=== PATIENT | male | born 1990 | race Two or more races ===

== ENCOUNTER 2023-01-02 00:33 | Emergency (ER) | payer SELFPAY ==
[2023-01-02 00:49] VITALS: BP 120/86; PULSE 71; RESP 16; TEMP 98; BMI 36.6
[2023-01-02] MEDS ORDERED: KETOROLAC TROMETHAMINE 30 MG/1 ML VIAL IM ONE (01:17)
[2023-01-02] MEDS ORDERED: KETOROLAC TROMETHAMINE 30 MG/1 ML VIAL ONE (01:37)
== END 2023-01-02 03:00 | disposition home or self-care (01) ==
LOC: JER 00:33
PROC: 3E023GC Introduction of Other Therapeutic Substance into Muscle, Percutaneous Approach (ICD-10-PCS; principal; 2023-01-02)
DX: M25.561 Pain in right knee (principal)
CPT/HCPCS: 73562-TC-RT-FY; 99284-25